=== PATIENT | male | born 1950 | race African-American/Black ===

== ENCOUNTER 2016-09-28 15:54 | Inpatient (IN) | payer MEDICARE, MEDICAID ==
[~2016-09-28] VITALS: Ht 182.9 cm; Wt 105.0 kg
[~2016-09-28 15:54] MED LIST: ALBU8HFA IH; HYDR25TA PO; METF500T4 PO; OMEP20 PO
[2016-09-28 17:57] LABS: GLUCOSE,POINT OF CARE 91 MG/DL (70-110)
[2016-09-28 18:11] LABS: BASOPHILS % (AUTO) 0.4 % (0.0-2.0); EOSINOPHILS % (AUTO) 1.6 % (1.0-6.0); HEMATOCRIT 40.1 % (41-53); HEMOGLOBIN 13.1 g/dL (13.5-17.5); LYMPHOCYTES # (AUTO) 1.3 K/uL (1.0-4.8); LYMPHOCYTES % (AUTO) 15.8 % (22.0-44.0); MEAN CORPUSCULAR HEMOGLOBIN 30.8 pg (26.0-34.0); MEAN CORPUSCULAR HGB CONC 32.6 G/dL (31.0-37.0); MEAN CORPUSCULAR VOLUME 94 fL (80-100); MONOCYTES # (AUTO) 0.4 K/uL (0.1-1.0); MONOCYTES % (AUTO) 5.2 % (2.0-9.0); NEUTROPHILS # (AUTO) 6.2 K/uL (1.8-7.7); PLATELET COUNT (AUTO) 195 K/uL (150-450); RED BLOOD CELL COUNT(AUTO) 4.25 MIL/uL (4.50-5.90); RED CELL DISTRIBUTION WIDTH 14.7 % (11.5-14.5)
[2016-09-28 18:19] LABS: ANION GAP 6 mmol/L (8-16); CALCIUM, TOTAL 8.9 mg/dL (8.8-10.5); CARBON DIOXIDE 33 mmol/L (22-29); CHLORIDE 103 mmol/L (98-107); CREATININE 1.21 mg/dL (0.60-1.30); GLOMERULAR FILTR. RATE CALC > 60 mL/min (>60); POTASSIUM 3.2 mmol/L (3.5-5.1); SODIUM SERUM 142 mmol/L (136-145); UREA NITROGEN, BLOOD 14 mg/dL (7-18)
[2016-09-28 18:25] LABS: ALANINE AMINOTRANSFERASE 26 U/L (12-78); ALBUMIN 3.6 g/dL (3.4-5.0); ASPARTATE AMINOTRANSFERASE 25 U/L (15-37); BILIRUBIN,TOTAL 0.4 mg/dL (0.1-1.0); TOTAL PROTEIN, SERUM 6.6 g/dL (6.4-8.2)
[2016-09-28] MEDS ORDERED: ONDANSETRON HCL 4 MG/2 ML VIAL IVP PRN (18:45)
[2016-09-28] MEDS ORDERED: HYDROCHLOROTHIAZIDE 25 MG TABLET PO ONE (18:45)
[2016-09-28] MEDS ORDERED: OMEPRAZOLE 10 MG CAPSULE PO SCH (18:45)
[2016-09-28] MEDS ORDERED: MAGNESIUM SULFATE 4 GM/WATER 100 ML IV PRN (18:45)
[2016-09-28] MEDS ORDERED: MAGNESIUM SULFATE 2 GM in DEXTROSE 5%-WATER 50 ML IV PRN (18:45)
[2016-09-28] MEDS ORDERED: DEXTROSE 50%-WATER 25 GM/50 ML SYRINGE IVP PRN ×2 (18:45→20:45)
[2016-09-28] MEDS ORDERED: ASPIRIN 81 MG CHEWABLE TABLET PO ONE (18:45)
[2016-09-28] MEDS ORDERED: 0.9% SODIUM CHLORIDE 10 ML SYRINGE IVP PRN (18:45)
[2016-09-28] MEDS ORDERED: POTASSIUM CHL 10 MEQ/WATER 50 ML IV PRN (18:45)
[2016-09-28] MEDS ORDERED: ACETAMINOPHEN 650 MG/20.3 ML SOLUTION UDCUP PO PRN (18:45)
[2016-09-28] MEDS ORDERED: ACETAMINOPHEN 325 MG TABLET PO PRN (18:45)
[2016-09-28] MEDS ORDERED: MAGNESIUM HYDROXIDE SUSPENSION 30 ML UDCUP PO PRN (18:45)
[2016-09-28] MEDS ORDERED: ZOLPIDEM TARTRATE 5 MG TABLET PO PRN (18:45)
[2016-09-28] MEDS ORDERED: INSULIN ASPART 100 UNITS/ML SQ PRN (18:45)
[2016-09-28] MEDS ORDERED: BISACODYL 10 MG RECTAL RECTAL SUPPOSITORY PR PRN (18:45)
[2016-09-28] MEDS ORDERED: MAGNESIUM OXIDE 400 MG TABLET PO PRN (18:45)
[2016-09-28 20:01] VITALS: BP 142/73
[2016-09-28] MEDS: BUDESONIDE 0.5 MG/2 ML NEB SOLUTION NEB PRN (20:10)
[2016-09-28] MEDS ORDERED: ALBUTEROL SULFATE 2.5 MG/0.5 ML NEB SOLUTION NEB PRN (20:45)
[2016-09-28] MEDS: ALBUTEROL SULFATE/IPRATROPIUM 100-20 MCG/SPRAY 4 GM INHALER IH SCH ×2 (20:45→23:14)
[2016-09-28] MEDS ORDERED: IPRATROPIUM BROMIDE 0.5 MG/2.5 ML NEB SOLUTION NEB PRN (20:45)
[2016-09-28] MEDS: TAMSULOSIN HCL 0.4 MG CAPSULE PO SCH (20:46)
[2016-09-28] MEDS: DOCUSATE SODIUM 100 MG CAPSULE PO SCH (20:46)
[2016-09-28 20:47] LABS: HEMOGLOBIN A1C 6.3 % (4.5-6.2)
[2016-09-28] MEDS: POTASSIUM CHLORIDE 20 MEQ ER TABLET PO PRN (20:47)
[2016-09-28] MEDS: POTASSIUM CHLORIDE 10% 40 MEQ/30 ML LIQUID UDCUP PO SCH (20:47)
[2016-09-28] MEDS: LISINOPRIL 20 MG TABLET PO SCH (20:47)
[2016-09-28 20:54] LABS: PROTHROMBIN TIME 10.2 SEC (9.4-11.6)
[2016-09-28] MEDS: MethylPREDNISolone SOD SUCC 125 MG/2 ML VIAL IVP SCH (21:04)
[2016-09-28] MEDS: INSULIN ASPART 100 UNITS/ML SQ PRN (21:05)
[2016-09-28 21:09] LABS: THYROID STIMULATING HORMONE 0.49 uIU/mL (0.36-3.74)
[2016-09-28 21:58] LABS: GLUCOSE COMMENT 1 Received Meds; GLUCOSE,POINT OF CARE 151 MG/DL (70-110)
[2016-09-28] MEDS: IPRATROPIUM BROMIDE 0.5 MG/2.5 ML NEB SOLUTION NEB SCH (23:19)
[2016-09-28] MEDS: ALBUTEROL SULFATE 2.5 MG/0.5 ML NEB SOLUTION NEB SCH (23:19)
[2016-09-28 23:37] VITALS: BP 119/57
[2016-09-29] MEDS ORDERED: ALBUTEROL SULFATE/IPRATROPIUM 100-20 MCG/SPRAY 4 GM INHALER IH PRN
[2016-09-29] MEDS: MethylPREDNISolone SOD SUCC 125 MG/2 ML VIAL IVP SCH ×5 (01:10→23:28)
[2016-09-29] MEDS: ALBUTEROL SULFATE 2.5 MG/0.5 ML NEB SOLUTION NEB SCH ×6 (03:19→23:30)
[2016-09-29] MEDS: IPRATROPIUM BROMIDE 0.5 MG/2.5 ML NEB SOLUTION NEB SCH ×6 (03:19→23:31)
[2016-09-29 03:24] VITALS: BP 139/89
[2016-09-29] MEDS: INSULIN ASPART 100 UNITS/ML SQ PRN ×4 (05:36→20:39)
[2016-09-29 06:48] LABS: GLUCOSE COMMENT 1 Received Meds; GLUCOSE,POINT OF CARE 188 MG/DL (70-110)
[2016-09-29 07:06] LABS: MAGNESIUM 1.8 mg/dL (1.80-2.40); POTASSIUM 3.4 mmol/L (3.5-5.1)
[2016-09-29 07:10] VITALS: BP 143/84
[2016-09-29] MEDS: MetFORMIN HCL 500 MG TABLET PO SCH ×2 (07:55→16:58)
[2016-09-29] MEDS: LISINOPRIL 20 MG TABLET PO SCH (07:55)
[2016-09-29] MEDS: DOCUSATE SODIUM 100 MG CAPSULE PO SCH ×2 (07:55→20:11)
[2016-09-29] MEDS: PANTOPRAZOLE SODIUM 40 MG DR TABLET PO SCH (07:55)
[2016-09-29] MEDS: TAMSULOSIN HCL 0.4 MG CAPSULE PO SCH (07:55)
[2016-09-29] MEDS: POTASSIUM CHLORIDE 10% 40 MEQ/30 ML LIQUID UDCUP PO SCH ×2 (07:56→20:11)
[2016-09-29] MEDS: POTASSIUM CHLORIDE 20 MEQ ER TABLET PO PRN ×2 (08:12→14:54)
[2016-09-29 11:34] VITALS: BP 148/95
[2016-09-29] MEDS ORDERED: ALBUTEROL SULFATE HFA 90 MCG/PUFF 8 GM INHALER IH PRN (14:45)
[2016-09-29 15:49] VITALS: BP 143/68
[2016-09-29 17:12] LABS: GLUCOSE,POINT OF CARE 152 MG/DL (70-110)
[2016-09-29 19:26] VITALS: BP 143/84
[2016-09-29] MEDS: TraZODone HCL 50 MG TABLET PO SCH (20:11)
[2016-09-29 22:52] LABS: GLUCOSE COMMENT 1 Received Meds; GLUCOSE,POINT OF CARE 154 MG/DL (70-110)
[2016-09-29 22:53] LABS: GLUCOSE COMMENT 1 Received Meds; GLUCOSE,POINT OF CARE 234 MG/DL (70-110)
[2016-09-29 23:26] VITALS: BP 154/82
[2016-09-30 02:29] LABS: APPEARANCE,URINE CLEAR (CLEAR); GLUCOSE, URINE (UA) 500 mg/dL (NEGATIVE); KETONES,URINE TRACE mg/dL (NEGATIVE); LEUKOCYTE ESTERASE ,URINE NEGATIVE (NEGATIVE); OCCULT BLOOD,URINE NEGATIVE (NEGATIVE); PH,URINE 5.5 (5.0-8.0); PROTEIN,URINE NEGATIVE (NEGATIVE)
[2016-09-30 02:30] LABS: ADD UA MICROSCOPIC YES
[2016-09-30 03:36] LABS: RBC,URINE None Seen /HPF (0-2); WBC,URINE None Seen /HPF (0-5)
[2016-09-30 04:33] VITALS: BP 136/76
[2016-09-30] MEDS: ALBUTEROL SULFATE 2.5 MG/0.5 ML NEB SOLUTION NEB SCH ×6 (04:46→22:53)
[2016-09-30] MEDS: IPRATROPIUM BROMIDE 0.5 MG/2.5 ML NEB SOLUTION NEB SCH ×6 (04:46→22:53)
[2016-09-30] MEDS: MethylPREDNISolone SOD SUCC 125 MG/2 ML VIAL IVP SCH ×4 (05:03→23:34)
[2016-09-30] MEDS: OxyCODONE HCL/ACETAMINOPHEN 5-325 MG TABLET PO PRN ×2 (05:03→20:12)
[2016-09-30] MEDS: INSULIN ASPART 100 UNITS/ML SQ PRN ×3 (05:29→18:17)
[2016-09-30 06:36] LABS: BASOPHILS # (AUTO) 0.01 K/uL (0.00-0.20); BASOPHILS % (AUTO) 0.1 % (0.0-2.0); EOSINOPHILS % (AUTO) 0 % (1.0-6.0); HEMATOCRIT 38.4 % (41-53); HEMOGLOBIN 12.7 g/dL (13.5-17.5); LYMPHOCYTES # (AUTO) 0.7 K/uL (1.0-4.8); LYMPHOCYTES % (AUTO) 4.5 % (22.0-44.0); MEAN CORPUSCULAR HEMOGLOBIN 31.7 pg (26.0-34.0); MEAN CORPUSCULAR HGB CONC 33.1 G/dL (31.0-37.0); MEAN CORPUSCULAR VOLUME 96 fL (80-100); MONOCYTES # (AUTO) 0.3 K/uL (0.1-1.0); MONOCYTES % (AUTO) 1.6 % (2.0-9.0); PLATELET COUNT (AUTO) 185 K/uL (150-450); RED BLOOD CELL COUNT(AUTO) 4.01 MIL/uL (4.50-5.90); RED CELL DISTRIBUTION WIDTH 14.7 % (11.5-14.5); WHITE BLOOD COUNT (AUTO) 15.9 K/uL (4.5-11.0)
[2016-09-30 06:57] LABS: ANION GAP 10 mmol/L (8-16); CALCIUM, TOTAL 9.6 mg/dL (8.8-10.5); CARBON DIOXIDE 27 mmol/L (22-29); CHLORIDE 101 mmol/L (98-107); CREATININE 1.28 mg/dL (0.60-1.30); GLOMERULAR FILTR. RATE CALC > 60 mL/min (>60); PHOSPHORUS 2.9 mg/dL (2.5-4.9); POTASSIUM 3.9 mmol/L (3.5-5.1); SODIUM SERUM 138 mmol/L (136-145); UREA NITROGEN, BLOOD 18 mg/dL (7-18)
[2016-09-30 07:17] VITALS: BP 136/76
[2016-09-30 07:27] LABS: NEUTROPHILS % (AUTO) 93.8 % (40.0-70.0)
[2016-09-30] MEDS: MetFORMIN HCL 500 MG TABLET PO SCH ×2 (08:03→18:15)
[2016-09-30] MEDS: PANTOPRAZOLE SODIUM 40 MG DR TABLET PO SCH (08:03)
[2016-09-30] MEDS: TAMSULOSIN HCL 0.4 MG CAPSULE PO SCH (08:03)
[2016-09-30] MEDS: DOCUSATE SODIUM 100 MG CAPSULE PO SCH ×2 (08:03→20:12)
[2016-09-30] MEDS: LISINOPRIL 20 MG TABLET PO SCH (08:05)
[2016-09-30] MEDS: POTASSIUM CHLORIDE 10% 40 MEQ/30 ML LIQUID UDCUP PO SCH ×2 (08:05→20:11)
[2016-09-30 11:32] VITALS: BP 136/69
[2016-09-30 11:59] LABS: GLUCOSE COMMENT 1 Received Meds; GLUCOSE,POINT OF CARE 286 MG/DL (70-110)
[2016-09-30 12:17] LABS: GLUCOSE COMMENT 1 Received Meds; GLUCOSE,POINT OF CARE 238 MG/DL (70-110)
[2016-09-30 15:46] VITALS: BP 131/83
[2016-09-30 17:32] LABS: GLUCOSE COMMENT 1 Received Meds; GLUCOSE,POINT OF CARE 133 MG/DL (70-110)
[2016-09-30] MEDS: BUDESONIDE 0.5 MG/2 ML NEB SOLUTION NEB PRN (19:03)
[2016-09-30 19:43] VITALS: BP 140/84
[2016-09-30] MEDS: TraZODone HCL 50 MG TABLET PO SCH (20:11)
[2016-10-01] VITALS (7 sets, daily range): BP systolic 121–155; BP diastolic 69–92
[2016-10-01] MEDS: IPRATROPIUM BROMIDE 0.5 MG/2.5 ML NEB SOLUTION NEB SCH ×6 (03:13→23:21)
[2016-10-01] MEDS: ALBUTEROL SULFATE 2.5 MG/0.5 ML NEB SOLUTION NEB SCH ×6 (03:13→23:21)
[2016-10-01] MEDS: MethylPREDNISolone SOD SUCC 125 MG/2 ML VIAL IVP SCH ×4 (05:14→23:47)
[2016-10-01] MEDS: INSULIN ASPART 100 UNITS/ML SQ PRN ×4 (05:19→20:49)
[2016-10-01] MEDS: BUDESONIDE 0.5 MG/2 ML NEB SOLUTION NEB PRN ×2 (07:35→19:37)
[2016-10-01] MEDS: DOCUSATE SODIUM 100 MG CAPSULE PO SCH ×2 (08:04→20:38)
[2016-10-01] MEDS: POTASSIUM CHLORIDE 10% 40 MEQ/30 ML LIQUID UDCUP PO SCH ×2 (08:04→20:39)
[2016-10-01] MEDS: PANTOPRAZOLE SODIUM 40 MG DR TABLET PO SCH (08:04)
[2016-10-01] MEDS: LISINOPRIL 20 MG TABLET PO SCH (08:04)
[2016-10-01] MEDS: MetFORMIN HCL 500 MG TABLET PO SCH ×2 (08:04→17:21)
[2016-10-01] MEDS: TAMSULOSIN HCL 0.4 MG CAPSULE PO SCH (08:04)
[2016-10-01] MEDS: INSULIN DETEMIR 100 UNITS/ML SQ SCH (08:05)
[2016-10-01 13:48] LABS: GLUCOSE,POINT OF CARE 119 MG/DL (70-110)
[2016-10-01 13:53] LABS: GLUCOSE COMMENT 1 Received Meds; GLUCOSE,POINT OF CARE 208 MG/DL (70-110)
[2016-10-01 15:09] LABS: GLUCOSE,POINT OF CARE 196 MG/DL (70-110)
[2016-10-01 19:07] LABS: GLUCOSE,POINT OF CARE 204 MG/DL (70-110)
[2016-10-01] MEDS: TraZODone HCL 50 MG TABLET PO SCH (23:46)
[2016-10-01] MEDS: OxyCODONE HCL/ACETAMINOPHEN 5-325 MG TABLET PO PRN (23:52)
[2016-10-02 00:02] LABS: GLUCOSE COMMENT 1 Received Meds; GLUCOSE,POINT OF CARE 220 MG/DL (70-110)
[2016-10-02] MEDS: IPRATROPIUM BROMIDE 0.5 MG/2.5 ML NEB SOLUTION NEB SCH ×6 (03:34→23:58)
[2016-10-02] MEDS: ALBUTEROL SULFATE 2.5 MG/0.5 ML NEB SOLUTION NEB SCH ×6 (03:34→23:57)
[2016-10-02 04:36] VITALS: BP 159/83
[2016-10-02] MEDS: MethylPREDNISolone SOD SUCC 125 MG/2 ML VIAL IVP SCH ×3 (06:01→17:50)
[2016-10-02] MEDS: INSULIN ASPART 100 UNITS/ML SQ PRN ×4 (06:10→21:01)
[2016-10-02 07:14] VITALS: BP 152/102
[2016-10-02] MEDS: BUDESONIDE 0.5 MG/2 ML NEB SOLUTION NEB PRN (08:20)
[2016-10-02] MEDS: TAMSULOSIN HCL 0.4 MG CAPSULE PO SCH (08:36)
[2016-10-02] MEDS: PANTOPRAZOLE SODIUM 40 MG DR TABLET PO SCH (08:36)
[2016-10-02] MEDS: DOCUSATE SODIUM 100 MG CAPSULE PO SCH ×2 (08:36→20:53)
[2016-10-02] MEDS: MetFORMIN HCL 500 MG TABLET PO SCH ×2 (08:37→17:49)
[2016-10-02] MEDS: POTASSIUM CHLORIDE 10% 40 MEQ/30 ML LIQUID UDCUP PO SCH ×2 (08:37→20:54)
[2016-10-02] MEDS: INSULIN DETEMIR 100 UNITS/ML SQ SCH (08:42)
[2016-10-02 09:02] LABS: GLUCOSE COMMENT 1 Received Meds; GLUCOSE,POINT OF CARE 202 MG/DL (70-110)
[2016-10-02 11:31] VITALS: BP 136/66
[2016-10-02] MEDS: LISINOPRIL 20 MG TABLET PO SCH (11:45)
[2016-10-02 12:02] LABS: GLUCOSE,POINT OF CARE 212 MG/DL (70-110)
[2016-10-02 15:41] VITALS: BP 116/59
[2016-10-02 17:12] LABS: GLUCOSE,POINT OF CARE 148 MG/DL (70-110)
[2016-10-02 19:56] VITALS: BP 158/88
[2016-10-02] MEDS ORDERED: PNEUMOCOCCAL VACCINE POLYVALENT 0.5 ML VIAL [PPSV23] IM ONE (20:00)
[2016-10-02] MEDS: QUEtiapine FUMARATE 25 MG TABLET PO SCH (20:53)
[2016-10-02] MEDS: TraZODone HCL 50 MG TABLET PO SCH (20:53)
[2016-10-02 21:42] LABS: GLUCOSE,POINT OF CARE 250 MG/DL (70-110)
[2016-10-02 23:52] VITALS: BP 147/75
[2016-10-03] MEDS: MethylPREDNISolone SOD SUCC 125 MG/2 ML VIAL IVP SCH ×4 (00:31→17:20)
[2016-10-03] MEDS: ALBUTEROL SULFATE 2.5 MG/0.5 ML NEB SOLUTION NEB SCH ×6 (03:48→23:46)
[2016-10-03] MEDS: IPRATROPIUM BROMIDE 0.5 MG/2.5 ML NEB SOLUTION NEB SCH ×6 (03:48→23:46)
[2016-10-03 05:18] VITALS: BP 127/67
[2016-10-03] MEDS: INSULIN ASPART 100 UNITS/ML SQ PRN ×4 (05:53→20:40)
[2016-10-03 06:02] LABS: GLUCOSE,POINT OF CARE 202 MG/DL (70-110)
[2016-10-03] MEDS: BUDESONIDE 0.5 MG/2 ML NEB SOLUTION NEB PRN ×2 (07:39→20:16)
[2016-10-03] MEDS: TAMSULOSIN HCL 0.4 MG CAPSULE PO SCH (08:01)
[2016-10-03] MEDS: PANTOPRAZOLE SODIUM 40 MG DR TABLET PO SCH (08:01)
[2016-10-03] MEDS: DOCUSATE SODIUM 100 MG CAPSULE PO SCH ×2 (08:01→20:28)
[2016-10-03] MEDS: LISINOPRIL 20 MG TABLET PO SCH (08:01)
[2016-10-03] MEDS: MetFORMIN HCL 500 MG TABLET PO SCH ×2 (08:01→17:45)
[2016-10-03 08:14] VITALS: BP 138/79
[2016-10-03] MEDS: POTASSIUM CHLORIDE 10% 40 MEQ/30 ML LIQUID UDCUP PO SCH ×2 (09:02→20:28)
[2016-10-03] MEDS: INSULIN DETEMIR 100 UNITS/ML SQ SCH (09:07)
[2016-10-03 11:41] VITALS: BP 144/90
[2016-10-03 11:52] LABS: GLUCOSE,POINT OF CARE 143 MG/DL (70-110)
[2016-10-03 18:16] LABS: GLUCOSE,POINT OF CARE 238 MG/DL (70-110)
[2016-10-03 20:16] VITALS: BP 154/89
[2016-10-03] MEDS: QUEtiapine FUMARATE 25 MG TABLET PO SCH (20:28)
[2016-10-03 21:02] LABS: GLUCOSE COMMENT 1 Received Meds; GLUCOSE,POINT OF CARE 153 MG/DL (70-110)
[2016-10-03 23:58] VITALS: BP 144/78
[2016-10-04] MEDS: MethylPREDNISolone SOD SUCC 125 MG/2 ML VIAL IVP SCH ×3 (00:11→11:38)
[2016-10-04] MEDS: TraZODone HCL 50 MG TABLET PO SCH (00:13)
[2016-10-04] MEDS: IPRATROPIUM BROMIDE 0.5 MG/2.5 ML NEB SOLUTION NEB SCH ×4 (03:07→16:27)
[2016-10-04] MEDS: ALBUTEROL SULFATE 2.5 MG/0.5 ML NEB SOLUTION NEB SCH ×4 (03:07→16:27)
[2016-10-04 05:05] VITALS: BP 143/57
[2016-10-04] MEDS: INSULIN ASPART 100 UNITS/ML SQ PRN ×2 (06:09→12:28)
[2016-10-04 07:32] VITALS: BP 135/77
[2016-10-04 07:32] LABS: GLUCOSE COMMENT 1 Repeated; GLUCOSE,POINT OF CARE 281 MG/DL (70-110)
[2016-10-04] MEDS: PANTOPRAZOLE SODIUM 40 MG DR TABLET PO SCH (09:24)
[2016-10-04] MEDS: TAMSULOSIN HCL 0.4 MG CAPSULE PO SCH (09:24)
[2016-10-04] MEDS: LISINOPRIL 20 MG TABLET PO SCH (09:24)
[2016-10-04] MEDS: DOCUSATE SODIUM 100 MG CAPSULE PO SCH (09:24)
[2016-10-04] MEDS: MetFORMIN HCL 500 MG TABLET PO SCH (09:24)
[2016-10-04] MEDS: INSULIN DETEMIR 100 UNITS/ML SQ SCH (09:26)
[2016-10-04] MEDS: POTASSIUM CHLORIDE 10% 40 MEQ/30 ML LIQUID UDCUP PO SCH (09:27)
[2016-10-04 11:22] LABS: GLUCOSE,POINT OF CARE 193 MG/DL (70-110)
[2016-10-04 11:55] VITALS: BP 161/90
[2016-10-04] MEDS ORDERED: PredniSONE 20 MG TABLET PO SCH (15:15)
[2016-10-04] MEDS ORDERED: PREDNISONE 10 MG PO (15:52)
[2016-10-04] MEDS ORDERED: PREDNISONE PO (15:52)
[2016-10-04 16:45] VITALS: BP 147/96
== END 2016-10-04 17:23 | disposition home or self-care (01) | DRG 192 ==
LOC: 6N 16:24
PROVIDERS: ADMIT Internal Medicine; ATTEND Internal Medicine
DX: J44.1 Chronic obstructive pulmonary disease with (acute) exacerbation (principal); E66.01 Morbid (severe) obesity due to excess calories; E78.5 Hyperlipidemia, unspecified; N40.1 Benign prostatic hyperplasia with lower urinary tract symptoms; I11.9 Hypertensive heart disease without heart failure; K21.9 Gastro-esophageal reflux disease without esophagitis; F17.210 Nicotine dependence, cigarettes, uncomplicated; I25.10 Atherosclerotic heart disease of native coronary artery without angina pectoris; F31.9 Bipolar disorder, unspecified; E83.42 Hypomagnesemia; E11.9 Type 2 diabetes mellitus without complications; Z90.49 Acquired absence of other specified parts of digestive tract; Z83.3 Family history of diabetes mellitus; Z68.31 Body mass index [BMI] 31.0-31.9, adult; Z91.041 Radiographic dye allergy status; Z82.49 Family history of ischemic heart disease and other diseases of the circulatory system; Z80.41 Family history of malignant neoplasm of ovary; Z79.82 Long term (current) use of aspirin; Z79.4 Long term (current) use of insulin; Z79.899 Other long term (current) drug therapy; Z71.6 Tobacco abuse counseling
CPT/HCPCS: 82962; 83036; 83735; 84100; 84132; 84443; 93005; 94640; J2405; J2930

== ENCOUNTER 2017-02-24 06:37 | Inpatient (IN) | payer MEDICARE, MEDICAID ==
[~2017-02-24] VITALS: Ht 177.8 cm; Wt 104.9 kg
[~2017-02-24 06:37] MED LIST changes: +PREDNISONE 10 MG PO; +PREDNISONE PO
[2017-02-24] MEDS ORDERED: IPRATROPIUM BROMIDE 0.5 MG/2.5 ML NEB SOLUTION NEB ONE ×2 (07:00→08:15)
[2017-02-24] MEDS ORDERED: PredniSONE 20 MG TABLET PO ONE (07:00)
[2017-02-24] MEDS ORDERED: ALBUTEROL SULFATE 2.5 MG/0.5 ML NEB SOLUTION NEB ONE ×2 (07:00)
[2017-02-24] MEDS ORDERED: ALBUTEROL SULFATE 5 MG/ML 20 ML NEB SOLN [BULK] NEB ONE ×2 (07:00→08:15)
[2017-02-24 07:42] LABS: GLUCOSE,POINT OF CARE 234 MG/DL (70-110)
[2017-02-24] MEDS ORDERED: ATOR40TA28 PO (07:57)
[2017-02-24] MEDS ORDERED: CLOP75 PO (07:57)
[2017-02-24] MEDS ORDERED: PRED20 PO (07:57)
[2017-02-24] MEDS ORDERED: BUDE10.2 IH (07:57)
[2017-02-24] MEDS ORDERED: TAMS0.4C32 PO (07:57)
[2017-02-24] MEDS ORDERED: ASPI81 PO (07:57)
[2017-02-24] MEDS ORDERED: METO50 PO (07:57)
[2017-02-24] MEDS ORDERED: METF500T4 PO (07:57)
[2017-02-24 08:00] LABS: BASOPHILS # (AUTO) 0.11 K/uL (0.00-0.20); BASOPHILS % (AUTO) 0.8 % (0.0-2.0); EOSINOPHILS # (AUTO) 0.03 K/uL (0.00-0.70); EOSINOPHILS % (AUTO) 0.19 % (1.0-6.0); HEMATOCRIT 31.5 % (41-53); HEMOGLOBIN 10.3 g/dL (13.5-17.5); LYMPHOCYTES % (AUTO) 7.1 % (22.0-44.0); MEAN CORPUSCULAR HEMOGLOBIN 30.6 pg (26.0-34.0); MEAN CORPUSCULAR HGB CONC 32.6 G/dL (31.0-37.0); MEAN CORPUSCULAR VOLUME 94 fL (80-100); MONOCYTES # (AUTO) 0.6 K/uL (0.1-1.0); MONOCYTES % (AUTO) 4.5 % (2.0-9.0); NEUTROPHILS # (AUTO) 12.4 K/uL (1.8-7.7); NEUTROPHILS % (AUTO) 87.5 % (40.0-70.0); PLATELET COUNT (AUTO) 307 K/uL (150-450); RED BLOOD CELL COUNT(AUTO) 3.36 MIL/uL (4.50-5.90); RED CELL DISTRIBUTION WIDTH 15.2 % (11.5-14.5); WHITE BLOOD COUNT (AUTO) 14.2 K/uL (4.5-11.0)
[2017-02-24 08:11] LABS: ANION GAP 2 mmol/L (8-16); CALCIUM, TOTAL 8.6 mg/dL (8.8-10.5); CARBON DIOXIDE 36 mmol/L (22-29); CHLORIDE 104 mmol/L (98-107); CREATININE 0.91 mg/dL (0.60-1.30); GLOMERULAR FILTR. RATE CALC > 60 mL/min (>60); POTASSIUM 4.3 mmol/L (3.5-5.1); SODIUM SERUM 142 mmol/L (136-145); UREA NITROGEN, BLOOD 30 mg/dL (7-18)
[2017-02-24 08:22] LABS: B-TYPE NATRIURETIC PEPTIDE 98 pg/mL (0-100)
[2017-02-24 08:36] LABS: ALANINE AMINOTRANSFERASE 41 U/L (12-78); ALBUMIN 3.3 g/dL (3.4-5.0); ASPARTATE AMINOTRANSFERASE 26 U/L (15-37); BILIRUBIN,TOTAL 0.2 mg/dL (0.1-1.0); CREATINE KINASE MB 14.5 ng/mL (0-5); CREATINE KINASE, TOTAL 181 U/L (39-308); TOTAL PROTEIN, SERUM 6.6 g/dL (6.4-8.2)
[2017-02-24] MEDS ORDERED: ONDANSETRON HCL 4 MG/2 ML VIAL IVP PRN ×2 (10:15→11:30)
[2017-02-24] MEDS ORDERED: ACETAMINOPHEN 325 MG TABLET PO PRN ×2 (10:15→11:30)
[2017-02-24] MEDS ORDERED: ALBUTEROL SULFATE 2.5 MG/0.5 ML NEB SOLUTION NEB SCH (11:00)
[2017-02-24] MEDS ORDERED: ZOLPIDEM TARTRATE 5 MG TABLET PO PRN (11:30)
[2017-02-24] MEDS ORDERED: MAGNESIUM HYDROXIDE SUSPENSION 30 ML UDCUP PO PRN (11:30)
[2017-02-24] MEDS ORDERED: HYDROCODONE/ACETAMINOPHEN 5-325 MG TABLET PO PRN (11:30)
[2017-02-24] MEDS ORDERED: BISACODYL 10 MG RECTAL RECTAL SUPPOSITORY PR PRN (11:30)
[2017-02-24 11:37] LABS: GLUCOSE,POINT OF CARE 385 MG/DL (70-110)
[2017-02-24 12:34] VITALS: BP 104/69
[2017-02-24] MEDS: IPRATROPIUM BROMIDE 0.5 MG/2.5 ML NEB SOLUTION NEB SCH ×3 (12:40→23:35)
[2017-02-24] MEDS ORDERED: LEVALBUTEROL HCL 0.63 MG/3 ML NEB SOLUTION NEB PRN (13:45)
[2017-02-24] MEDS: ASPIRIN 81 MG EC TABLET PO SCH (17:15)
[2017-02-24] MEDS: MetFORMIN HCL 500 MG TABLET PO SCH (17:15)
[2017-02-24] MEDS: HEPARIN SODIUM,PORCINE 5,000 UNITS/ML VIAL SQ SCH ×2 (17:15→23:42)
[2017-02-24 17:40] VITALS: BP 122/71
[2017-02-24] MEDS ORDERED: PNEUMOCOCCAL VACCINE POLYVALENT 0.5 ML VIAL [PPSV23] IM ONE (18:30)
[2017-02-24 19:42] VITALS: BP 119/68
[2017-02-24] MEDS: LEVALBUTEROL HCL 0.63 MG/3 ML NEB SOLUTION NEB SCH ×2 (19:49→23:35)
[2017-02-24] MEDS: ATORVASTATIN CALCIUM 40 MG TABLET PO SCH (20:15)
[2017-02-24] MEDS: METOPROLOL TARTRATE 25 MG TABLET PO SCH (20:15)
[2017-02-24] MEDS: DOCUSATE SODIUM 100 MG CAPSULE PO SCH (20:15)
[2017-02-24] MEDS ORDERED: METOPROLOL TARTRATE 50 MG TABLET PO SCH (21:00)
[2017-02-25 00:20] VITALS: BP 137/74
[2017-02-25] MEDS: LEVALBUTEROL HCL 0.63 MG/3 ML NEB SOLUTION NEB SCH ×6 (02:29→23:47)
[2017-02-25] MEDS: IPRATROPIUM BROMIDE 0.5 MG/2.5 ML NEB SOLUTION NEB SCH ×2 (02:30→07:11)
[2017-02-25 07:43] VITALS: BP 123/69
[2017-02-25] MEDS ORDERED: ASPIRIN 81 MG CHEWABLE TABLET PO SCH (09:00)
[2017-02-25] MEDS: HEPARIN SODIUM,PORCINE 5,000 UNITS/ML VIAL SQ SCH ×2 (09:32→17:26)
[2017-02-25] MEDS: TAMSULOSIN HCL 0.4 MG CAPSULE PO SCH (09:33)
[2017-02-25] MEDS: ASPIRIN 81 MG EC TABLET PO SCH (09:33)
[2017-02-25] MEDS: METOPROLOL TARTRATE 25 MG TABLET PO SCH ×2 (09:33→19:41)
[2017-02-25] MEDS: PANTOPRAZOLE SODIUM 40 MG DR TABLET PO SCH (09:33)
[2017-02-25] MEDS: CLOPIDOGREL BISULFATE 75 MG TABLET PO SCH (09:53)
[2017-02-25] MEDS: DOCUSATE SODIUM 100 MG CAPSULE PO SCH ×2 (09:54→19:41)
[2017-02-25] MEDS: FLUTICASONE/VILANTEROL 200-25 MCG/INH INHALER [14] IH SCH (12:22)
[2017-02-25 14:22] VITALS: BP 127/60
[2017-02-25 15:45] VITALS: BP 147/75
[2017-02-25] MEDS: MethylPREDNISolone SOD SUCC 125 MG/2 ML VIAL IVP SCH (16:06)
[2017-02-25 16:12] LABS: ABG A-A DIFF O2 84.4 mmHg (10-20.0); ABG BASE EXCESS 12.7 mmol/L (-2.0-3.0); ABG HCO3 33.9 mmol/L (22.0-26.0); ABG OXYHEMOGLOBIN 85.4 % (94.0-100.0); TEMPERATURE, FAHRENHEIT, BG 98.6 FAHREN (96.0-98.6)
[2017-02-25 16:13] LABS: ABG PCO2 77 mmHg (35-45); ALLEN TEST, BLOOD GAS Positive
[2017-02-25] MEDS: MetFORMIN HCL 500 MG TABLET PO SCH (18:00)
[2017-02-25] MEDS ORDERED: DIGOXIN 250 MCG/ML 2 ML AMP ONE (18:01)
[2017-02-25] MEDS: DIGOXIN 125 MCG TABLET PO SCH (18:42)
[2017-02-25 19:32] VITALS: BP 130/80
[2017-02-25] MEDS: MORPHINE SULFATE 2 MG/ML SYRINGE IVP PRN (19:41)
[2017-02-25] MEDS: ATORVASTATIN CALCIUM 40 MG TABLET PO SCH (19:41)
[2017-02-25 20:11] LABS: ABG A-A DIFF O2 27.2 mmHg (10-20.0); ABG BASE EXCESS 12.8 mmol/L (-2.0-3.0); ABG HCO3 34.1 mmol/L (22.0-26.0); ABG OXYHEMOGLOBIN 89.3 % (94.0-100.0); ABG PH 7.348 (7.35-7.450); TEMPERATURE, FAHRENHEIT, BG 98.6 FAHREN (96.0-98.6)
[2017-02-25 20:12] LABS: ABG PCO2 72 mmHg (35-45)
[2017-02-25 20:13] LABS: ALLEN TEST, BLOOD GAS Positive; IPAP, BG 18 cm H2O
[2017-02-25] MEDS: LORazepam 2 MG/ML VIAL IVP PRN (20:29)
[2017-02-25 23:32] VITALS: BP 137/67
[2017-02-26] MEDS: HEPARIN SODIUM,PORCINE 5,000 UNITS/ML VIAL SQ SCH ×3 (00:57→17:16)
[2017-02-26] MEDS: MethylPREDNISolone SOD SUCC 125 MG/2 ML VIAL IVP SCH ×4 (00:58→17:33)
[2017-02-26] MEDS ORDERED: 0.9% SODIUM CHLORIDE 5 ML NEB SOLUTION NEB ONE ×2 (03:09→07:25)
[2017-02-26] MEDS: LORazepam 2 MG/ML VIAL IVP PRN ×3 (03:10→19:54)
[2017-02-26] MEDS: LEVALBUTEROL HCL 0.63 MG/3 ML NEB SOLUTION NEB SCH ×4 (03:12→20:52)
[2017-02-26 05:09] VITALS: BP 140/81
[2017-02-26 07:43] VITALS: BP 147/83
[2017-02-26] MEDS: TAMSULOSIN HCL 0.4 MG CAPSULE PO SCH (08:50)
[2017-02-26] MEDS: ASPIRIN 81 MG EC TABLET PO SCH (08:50)
[2017-02-26] MEDS: FLUTICASONE/VILANTEROL 200-25 MCG/INH INHALER [14] IH SCH (08:50)
[2017-02-26] MEDS: CLOPIDOGREL BISULFATE 75 MG TABLET PO SCH (08:50)
[2017-02-26] MEDS: DOCUSATE SODIUM 100 MG CAPSULE PO SCH ×2 (08:50→19:53)
[2017-02-26] MEDS: METOPROLOL TARTRATE 25 MG TABLET PO SCH ×2 (08:52→19:54)
[2017-02-26] MEDS: PANTOPRAZOLE SODIUM 40 MG DR TABLET PO SCH (08:54)
[2017-02-26] MEDS: DIGOXIN 125 MCG TABLET PO SCH (08:54)
[2017-02-26] MEDS: DILTIAZEM HCL CD 120 MG ER CAPSULE PO SCH (09:53)
[2017-02-26 11:16] VITALS: BP 143/79
[2017-02-26 12:43] LABS: GLUCOSE COMMENT 1 Received Meds; GLUCOSE,POINT OF CARE 222 MG/DL (70-110)
[2017-02-26 15:22] VITALS: BP 146/77
[2017-02-26 17:14] LABS: ABG BASE EXCESS 10.6 mmol/L (-2.0-3.0); ABG HCO3 32.2 mmol/L (22.0-26.0); ABG OXYHEMOGLOBIN 91.5 % (94.0-100.0); ABG PH 7.344 (7.35-7.450); TEMPERATURE, FAHRENHEIT, BG 97.6 FAHREN (96.0-98.6)
[2017-02-26 17:15] LABS: ABG PCO2 68 mmHg (35-45); ALLEN TEST, BLOOD GAS Positive
[2017-02-26] MEDS: MetFORMIN HCL 500 MG TABLET PO SCH (17:16)
[2017-02-26 19:28] VITALS: BP 151/84
[2017-02-26] MEDS: ATORVASTATIN CALCIUM 40 MG TABLET PO SCH (19:53)
[2017-02-27] VITALS (7 sets, daily range): BP systolic 138–161; BP diastolic 71–87
[2017-02-27] MEDS: HEPARIN SODIUM,PORCINE 5,000 UNITS/ML VIAL SQ SCH ×4 (01:14→23:52)
[2017-02-27] MEDS: MethylPREDNISolone SOD SUCC 125 MG/2 ML VIAL IVP SCH ×5 (01:14→23:52)
[2017-02-27] MEDS: LEVALBUTEROL HCL 0.63 MG/3 ML NEB SOLUTION NEB SCH ×3 (03:28→14:02)
[2017-02-27 06:39] LABS: BASOPHILS % (AUTO) 0.1 % (0.0-2.0); EOSINOPHILS % (AUTO) 0 % (1.0-6.0); HEMATOCRIT 32.2 % (41-53); HEMOGLOBIN 10.8 g/dL (13.5-17.5); LYMPHOCYTES # (AUTO) 0.4 K/uL (1.0-4.8); LYMPHOCYTES % (AUTO) 2.4 % (22.0-44.0); MEAN CORPUSCULAR HEMOGLOBIN 30.9 pg (26.0-34.0); MEAN CORPUSCULAR HGB CONC 33.4 G/dL (31.0-37.0); MEAN CORPUSCULAR VOLUME 92 fL (80-100); MONOCYTES # (AUTO) 0.2 K/uL (0.1-1.0); MONOCYTES % (AUTO) 1.1 % (2.0-9.0); NEUTROPHILS # (AUTO) 14.9 K/uL (1.8-7.7); PLATELET COUNT (AUTO) 234 K/uL (150-450); RED BLOOD CELL COUNT(AUTO) 3.48 MIL/uL (4.50-5.90); RED CELL DISTRIBUTION WIDTH 14.5 % (11.5-14.5)
[2017-02-27 06:55] LABS: NEUTROPHILS % (AUTO) 96.4 % (40.0-70.0); WHITE BLOOD COUNT (AUTO) 16.3 K/uL (4.5-11.0)
[2017-02-27] MEDS ORDERED: 0.9% SODIUM CHLORIDE 5 ML NEB SOLUTION NEB ONE (07:16)
[2017-02-27 07:32] LABS: ALANINE AMINOTRANSFERASE 29 U/L (12-78); ALBUMIN 2.9 g/dL (3.4-5.0); ANION GAP 5 mmol/L (8-16); ASPARTATE AMINOTRANSFERASE 10 U/L (15-37); BILIRUBIN,TOTAL 0.3 mg/dL (0.1-1.0); CARBON DIOXIDE 35 mmol/L (22-29); CHLORIDE 96 mmol/L (98-107); CREATININE 0.94 mg/dL (0.60-1.30); GLOMERULAR FILTR. RATE CALC > 60 mL/min (>60); SODIUM SERUM 136 mmol/L (136-145); TOTAL PROTEIN, SERUM 6.2 g/dL (6.4-8.2); UREA NITROGEN, BLOOD 32 mg/dL (7-18)
[2017-02-27] MEDS: PANTOPRAZOLE SODIUM 40 MG DR TABLET PO SCH (09:36)
[2017-02-27] MEDS: DOCUSATE SODIUM 100 MG CAPSULE PO SCH ×2 (09:36→20:20)
[2017-02-27] MEDS: TAMSULOSIN HCL 0.4 MG CAPSULE PO SCH (09:36)
[2017-02-27] MEDS: CLOPIDOGREL BISULFATE 75 MG TABLET PO SCH (09:36)
[2017-02-27] MEDS: DILTIAZEM HCL CD 120 MG ER CAPSULE PO SCH (09:36)
[2017-02-27] MEDS: ASPIRIN 81 MG EC TABLET PO SCH (09:36)
[2017-02-27] MEDS: DIGOXIN 125 MCG TABLET PO SCH (09:36)
[2017-02-27] MEDS: FLUTICASONE/VILANTEROL 200-25 MCG/INH INHALER [14] IH SCH (09:37)
[2017-02-27] MEDS: METOPROLOL TARTRATE 25 MG TABLET PO SCH ×2 (09:38→20:20)
[2017-02-27] MEDS ORDERED: DEXTROSE 50%-WATER 25 GM/50 ML SYRINGE IVP PRN (17:45)
[2017-02-27] MEDS: MetFORMIN HCL 500 MG TABLET PO SCH (18:00)
[2017-02-27] MEDS: INSULIN ASPART 100 UNITS/ML SQ PRN ×2 (18:20→20:28)
[2017-02-27] MEDS: IPRATROPIUM BROMIDE 0.5 MG/2.5 ML NEB SOLUTION NEB SCH ×2 (19:45→22:55)
[2017-02-27] MEDS: ATORVASTATIN CALCIUM 40 MG TABLET PO SCH (20:20)
[2017-02-27 22:23] LABS: GLUCOSE COMMENT 1 Received Meds; GLUCOSE,POINT OF CARE 317 MG/DL (70-110)
[2017-02-27 22:23] LABS: GLUCOSE COMMENT 1 Received Meds; GLUCOSE,POINT OF CARE 323 MG/DL (70-110)
[2017-02-27] MEDS: LORazepam 2 MG/ML VIAL IM PRN (23:52)
[2017-02-27] MEDS: LORazepam 2 MG/ML VIAL IVP PRN (23:54)
[2017-02-28] MEDS: IPRATROPIUM BROMIDE 0.5 MG/2.5 ML NEB SOLUTION NEB SCH ×6 (02:41→23:00)
[2017-02-28] MEDS: MethylPREDNISolone SOD SUCC 125 MG/2 ML VIAL IVP SCH (06:03)
[2017-02-28] MEDS: INSULIN ASPART 100 UNITS/ML SQ PRN ×3 (06:08→20:49)
[2017-02-28 06:52] LABS: EOSINOPHILS % (AUTO) 0 % (1.0-6.0); HEMATOCRIT 31.8 % (41-53); HEMOGLOBIN 10.3 g/dL (13.5-17.5); LYMPHOCYTES # (AUTO) 0.4 K/uL (1.0-4.8); LYMPHOCYTES % (AUTO) 2.8 % (22.0-44.0); MEAN CORPUSCULAR HEMOGLOBIN 30.1 pg (26.0-34.0); MEAN CORPUSCULAR HGB CONC 32.5 G/dL (31.0-37.0); MEAN CORPUSCULAR VOLUME 93 fL (80-100); MONOCYTES # (AUTO) 0.1 K/uL (0.1-1.0); MONOCYTES % (AUTO) 0.8 % (2.0-9.0); NEUTROPHILS # (AUTO) 12.3 K/uL (1.8-7.7); PLATELET COUNT (AUTO) 242 K/uL (150-450); RED BLOOD CELL COUNT(AUTO) 3.43 MIL/uL (4.50-5.90); RED CELL DISTRIBUTION WIDTH 14.9 % (11.5-14.5); WHITE BLOOD COUNT (AUTO) 12.7 K/uL (4.5-11.0)
[2017-02-28 07:21] LABS: NEUTROPHILS % (AUTO) 96.4 % (40.0-70.0)
[2017-02-28 07:48] LABS: GLUCOSE COMMENT 1 Received Meds; GLUCOSE,POINT OF CARE 218 MG/DL (70-110)
[2017-02-28 07:53] VITALS: BP 157/99
[2017-02-28 08:42] LABS: ALANINE AMINOTRANSFERASE 28 U/L (12-78); ALBUMIN 2.8 g/dL (3.4-5.0); ANION GAP 3 mmol/L (8-16); ASPARTATE AMINOTRANSFERASE 11 U/L (15-37); BILIRUBIN,TOTAL 0.3 mg/dL (0.1-1.0); CALCIUM, TOTAL 8.7 mg/dL (8.8-10.5); CARBON DIOXIDE 38 mmol/L (22-29); CHLORIDE 99 mmol/L (98-107); CREATININE 0.84 mg/dL (0.60-1.30); GLOMERULAR FILTR. RATE CALC > 60 mL/min (>60); POTASSIUM 4.9 mmol/L (3.5-5.1); SODIUM SERUM 140 mmol/L (136-145); TOTAL PROTEIN, SERUM 5.8 g/dL (6.4-8.2); UREA NITROGEN, BLOOD 31 mg/dL (7-18)
[2017-02-28] MEDS: METOPROLOL TARTRATE 25 MG TABLET PO SCH ×2 (09:19→20:40)
[2017-02-28] MEDS: DOCUSATE SODIUM 100 MG CAPSULE PO SCH ×2 (09:19→20:40)
[2017-02-28] MEDS: HEPARIN SODIUM,PORCINE 5,000 UNITS/ML VIAL SQ SCH ×2 (09:19→15:30)
[2017-02-28] MEDS: DILTIAZEM HCL CD 120 MG ER CAPSULE PO SCH (09:19)
[2017-02-28] MEDS: PANTOPRAZOLE SODIUM 40 MG DR TABLET PO SCH (09:19)
[2017-02-28] MEDS: ASPIRIN 81 MG EC TABLET PO SCH (09:20)
[2017-02-28] MEDS: CLOPIDOGREL BISULFATE 75 MG TABLET PO SCH (09:20)
[2017-02-28] MEDS: TAMSULOSIN HCL 0.4 MG CAPSULE PO SCH (09:20)
[2017-02-28] MEDS: DIGOXIN 125 MCG TABLET PO SCH (09:20)
[2017-02-28] MEDS: FLUTICASONE/VILANTEROL 200-25 MCG/INH INHALER [14] IH SCH (09:21)
[2017-02-28 11:18] VITALS: BP 179/89
[2017-02-28] MEDS: MethylPREDNISolone SOD SUCC 40 MG/ML VIAL IVP SCH ×2 (11:55→17:45)
[2017-02-28] MEDS ORDERED: INSULIN ASPART 100 UNITS/ML SQ ONE (12:00)
[2017-02-28 15:07] VITALS: BP 170/78
[2017-02-28] MEDS: MetFORMIN HCL 500 MG TABLET PO SCH (17:45)
[2017-02-28 19:23] LABS: GLUCOSE COMMENT 1 Received Meds; GLUCOSE,POINT OF CARE 304 MG/DL (70-110)
[2017-02-28 19:23] LABS: GLUCOSE COMMENT 1 Received Meds; GLUCOSE,POINT OF CARE 497 MG/DL (70-110)
[2017-02-28 20:11] VITALS: BP 157/84
[2017-02-28] MEDS: ATORVASTATIN CALCIUM 40 MG TABLET PO SCH (20:40)
[2017-02-28] MEDS: LORazepam 2 MG/ML VIAL IM PRN (20:40)
[2017-03-01] MEDS: MethylPREDNISolone SOD SUCC 40 MG/ML VIAL IVP SCH ×4 (00:04→18:00)
[2017-03-01] MEDS: MORPHINE SULFATE 2 MG/ML SYRINGE IVP PRN (00:04)
[2017-03-01] MEDS: HEPARIN SODIUM,PORCINE 5,000 UNITS/ML VIAL SQ SCH ×3 (00:04→15:27)
[2017-03-01 00:14] VITALS: BP 139/61
[2017-03-01] MEDS: IPRATROPIUM BROMIDE 0.5 MG/2.5 ML NEB SOLUTION NEB SCH ×4 (03:10→15:40)
[2017-03-01 04:55] VITALS: BP 149/57
[2017-03-01] MEDS: INSULIN ASPART 100 UNITS/ML SQ PRN ×3 (06:20→17:50)
[2017-03-01 06:21] LABS: BASOPHILS % (AUTO) 0.1 % (0.0-2.0); EOSINOPHILS % (AUTO) 0 % (1.0-6.0); HEMATOCRIT 31.5 % (41-53); HEMOGLOBIN 10.3 g/dL (13.5-17.5); LYMPHOCYTES # (AUTO) 0.4 K/uL (1.0-4.8); LYMPHOCYTES % (AUTO) 2.8 % (22.0-44.0); MEAN CORPUSCULAR HEMOGLOBIN 30.5 pg (26.0-34.0); MEAN CORPUSCULAR HGB CONC 32.8 G/dL (31.0-37.0); MEAN CORPUSCULAR VOLUME 93 fL (80-100); MONOCYTES # (AUTO) 0.1 K/uL (0.1-1.0); MONOCYTES % (AUTO) 0.5 % (2.0-9.0); NEUTROPHILS # (AUTO) 13.4 K/uL (1.8-7.7); PLATELET COUNT (AUTO) 230 K/uL (150-450); RED BLOOD CELL COUNT(AUTO) 3.39 MIL/uL (4.50-5.90); RED CELL DISTRIBUTION WIDTH 14.6 % (11.5-14.5); WHITE BLOOD COUNT (AUTO) 13.9 K/uL (4.5-11.0)
[2017-03-01 06:43] LABS: ANION GAP -1 mmol/L (8-16); CALCIUM, TOTAL 8.8 mg/dL (8.8-10.5); CARBON DIOXIDE 40 mmol/L (22-29); CHLORIDE 98 mmol/L (98-107); CREATININE 0.93 mg/dL (0.60-1.30); GLOMERULAR FILTR. RATE CALC > 60 mL/min (>60); SODIUM SERUM 137 mmol/L (136-145); UREA NITROGEN, BLOOD 28 mg/dL (7-18)
[2017-03-01 07:03] LABS: NEUTROPHILS % (AUTO) 96.6 % (40.0-70.0)
[2017-03-01 07:24] VITALS: BP 155/89
[2017-03-01] MEDS ORDERED: OXYGEN THERAPY IH SCH (08:00)
[2017-03-01] MEDS: TAMSULOSIN HCL 0.4 MG CAPSULE PO SCH (08:05)
[2017-03-01] MEDS: DILTIAZEM HCL CD 120 MG ER CAPSULE PO SCH (08:05)
[2017-03-01] MEDS: ASPIRIN 81 MG EC TABLET PO SCH (08:05)
[2017-03-01] MEDS: DOCUSATE SODIUM 100 MG CAPSULE PO SCH (08:05)
[2017-03-01] MEDS: FLUTICASONE/VILANTEROL 200-25 MCG/INH INHALER [14] IH SCH (08:05)
[2017-03-01] MEDS: PANTOPRAZOLE SODIUM 40 MG DR TABLET PO SCH (08:06)
[2017-03-01] MEDS: DIGOXIN 125 MCG TABLET PO SCH (08:06)
[2017-03-01] MEDS: METOPROLOL TARTRATE 25 MG TABLET PO SCH (08:06)
[2017-03-01] MEDS: CLOPIDOGREL BISULFATE 75 MG TABLET PO SCH (08:06)
[2017-03-01 09:57] LABS: GLUCOSE COMMENT 1 Received Meds; GLUCOSE,POINT OF CARE 325 MG/DL (70-110)
[2017-03-01 09:58] LABS: GLUCOSE COMMENT 1 Received Meds; GLUCOSE,POINT OF CARE 295 MG/DL (70-110)
[2017-03-01 11:31] VITALS: BP 131/64
[2017-03-01 15:02] VITALS: BP 131/67
[2017-03-01] MEDS ORDERED: DIGO125T PO (16:20)
[2017-03-01] MEDS ORDERED: DILT-39 PO (16:20)
[2017-03-01] MEDS ORDERED: METO25 PO (16:21)
[2017-03-01] MEDS ORDERED: PANT40TA25 PO (16:22)
[2017-03-01] MEDS ORDERED: TAMS0.4C32 PO (16:22)
[2017-03-01] MEDS ORDERED: ZOLP5 PO (16:24)
[2017-03-01] MEDS ORDERED: INSNOV SQ (16:25)
[2017-03-01] MEDS ORDERED: IPRNEB IH ×2 (16:29→16:31)
[2017-03-01] MEDS ORDERED: LEVA0.6319 NEB ×2 (16:29→16:30)
[2017-03-01] MEDS: MetFORMIN HCL 500 MG TABLET PO SCH (17:50)
[2017-03-01] MEDS ORDERED: RisperiDONE 0.5 MG TABLET PO SCH (21:00)
[2017-03-02 02:17] LABS: GLUCOSE COMMENT 1 Received Meds; GLUCOSE,POINT OF CARE 316 MG/DL (70-110)
[2017-03-02 20:28] LABS: GLUCOSE COMMENT 1 Received Meds; GLUCOSE,POINT OF CARE 371 MG/DL (70-110)
== END 2017-03-01 18:30 | DRG 189 ==
LOC: EMS 06:38 → 5N 12:05
PROVIDERS: ADMIT Internal Medicine; ATTEND Internal Medicine
PROC: 5A09457 Assistance with Respiratory Ventilation, 24-96 Consecutive Hours, Continuous Positive Airway Pressure (ICD-10-PCS; principal; 2017-02-24)
DX: J96.02 Acute respiratory failure with hypercapnia (principal); E87.2 Acidosis; I11.0 Hypertensive heart disease with heart failure; I50.32 Chronic diastolic (congestive) heart failure; I47.1 Supraventricular tachycardia; I48.0 Paroxysmal atrial fibrillation; E11.9 Type 2 diabetes mellitus without complications; D64.9 Anemia, unspecified; J44.1 Chronic obstructive pulmonary disease with (acute) exacerbation; J96.01 Acute respiratory failure with hypoxia; D72.829 Elevated white blood cell count, unspecified; Z59.0 Homelessness; F19.10 Other psychoactive substance abuse, uncomplicated; E78.5 Hyperlipidemia, unspecified; F17.210 Nicotine dependence, cigarettes, uncomplicated; F41.9 Anxiety disorder, unspecified; K21.9 Gastro-esophageal reflux disease without esophagitis; Z91.19 Patient's noncompliance with other medical treatment and regimen; Z91.041 Radiographic dye allergy status; Z79.899 Other long term (current) drug therapy; Z71.6 Tobacco abuse counseling; Z28.21 Immunization not carried out because of patient refusal
CPT/HCPCS: 82805; 82962; 83735; 84145; 93005; 93306; 94640; 94660; 99291; J1160; J1644; J1815; J2060; J2270; J2405; J2920; J2930